=== PATIENT | male | born 1970 | race Caucasian/White ===

== ENCOUNTER → 2018-12-30 08:45 | Outpatient (CLI) | payer OTHER, SELFPAY ==
--- NOTE | 2018-12-30 08:47 | MR_ITS ---
PROCEDURE: MR ANKLE RT WO/W CON CLINICAL INDICATION: right ankle pain Pain and swelling, recent injury with pain, limited range of motion Sprain of the ATF L Sprain of the deltoid ligament Peroni ule tendonitis the COMPARISON: XR ANKLE RT MIN 3V from 12/04/2018 TECHNIQUE: Routine multiplanar multi echo sequences are performed without and with gadolinium enhancement. FINDINGS: Tibial fibular ligaments appear intact. There is some thinning of the ATFL with some slight increased T2 signal on the STIR images . The PT FL has an unremarkable appearance. There is some increased edema involving the inferior fibers of the deltoid ligament. There is slight edema involving the distal aspect of the fibula. The Achilles tendon and flexor tendons appear intact there is slight increased T2 signal involving the peroneal brevis tendon inferior to the tip of the fibula. There is an accessory center of ossification versus an old fracture at the tip of the fibula. The flexor hallucis longus, flexor digitorum longus, and posterior tibialis tendons appear intact. There is a small ankle joint effusion. No acute fractures. IMPRESSION: 1. Sprain versus partial tear of the ATFL 2. Sprain versus partial tear of the caudal fibers of the deltoid ligament 3. Slight increased signal involves the peroneal brevis tendon just distal to the lateral malleolar region and may represent a small intrasubstance tear versus an area of tendinosis. 4. Mild edema of the lateral malleolar region which could represent a bone bruise Dictated by: Isael Quiroga MD 12/31/2018 09:29 Electronically signed by Isael Quiroga MD in [place] 01/03/2019 05:05
== END ==
PROVIDERS: Visit Provider Podiatrist
DX: M25.471 Effusion, right ankle (principal); M25.571 Pain in right ankle and joints of right foot; S82.891A Other fracture of right lower leg, initial encounter for closed fracture; S93.401A Sprain of unspecified ligament of right ankle, initial encounter; S93.421A Sprain of deltoid ligament of right ankle, initial encounter
CPT/HCPCS: 73723; A9576

== ENCOUNTER → 2019-01-31 11:14 | Outpatient (CLI) | payer OTHER, SELFPAY ==
--- NOTE | 2019-01-31 | ECG_ITS ---
APPROVED REPORT Exam: Resting ECG HR:78 bpm ECG Measurements Heart Rate 78 AXES WY 164 P 63 QRSd 90 QRS 74 QT 362 T 14 QTc 412 <Conclusion> Normal sinus rhythm Normal ECG Electronically signed by : Moisés Ji, 02/03/2019 16:58:35
--- NOTE | 2019-01-31 11:35 | XR_ITS ---
PROCEDURE: XR CHEST 2V CLINICAL HISTORY: EXTREMITY SWELLING, ?CHF Hypertension, swelling COMPARISON: No exams were available for comparison FINDINGS: The cardiomediastinal silhouette and pulmonary vascularity are within normal limits. Linear density is present in the left lung base and in the anterior clear space consistent areas of atelectasis or fibrosis. No lobar consolidation or collapse. There is a small area of increased density overlying the T5 vertebral body superiorly and may be due to an area of sclerosis in the vertebral body. Summation artifact is also considered. Small osteophyte is considered as well. IMPRESSION: Atelectatic or fibrotic changes in the left lung base and anterior clear space Small area of increased density overlying the T5 vertebral body nonspecific. Stability may be confirmed with follow-up Dictated by: Isael Quiroga MD 01/31/2019 12:07 Electronically signed by Isael Quiroga MD in [place] 01/31/2019 12:08
[2019-01-31 11:55] LABS: Basophils % 0.5 % (0.1-2.0); Eosinophils # 0.1 K/mm3 (0.0-0.4); Eosinophils % 1.4 % (0.1-12.0); Hematocrit 48.9 % (42.0-52.0); Lymphocytes % 40.5 % (10-50); Mean Corpuscular HGB Conc 32.7 g/dL (31.8-35.4); Mean Corpuscular Hemoglobin 29.5 pg (27.0-31.2); Mean Corpuscular Volume 90.2 fl (80-94); Mean Platelet Volume 7.7 fl (7.4-10.4); Monocytes # 0.3 K/mm3 (0.1-1.0); Monocytes % 6.6 % (1.7-9.3); Neutrophils # 2.5 K/mm3 (1.8-7.8); Platelet Count 228 K/mm3 (142-424); Red Blood Count 5.42 M/mm3 (4.60-6.20); Red Cell Distribution Width 13.7 % (11.5-17.5); White Blood Count 4.9 K/mm3 (4.8-10.8)
[2019-01-31 12:58] LABS: Alanine Aminotransferase 75 U/L (12-78); Albumin Level 3.7 gm/dL (3.4-5.0); Albumin/Globulin Ratio 1.1 (1.1-1.8); Alkaline Phosphatase 71 U/L (46-116); Anion Gap 11.7 mEq/L (5-15); Aspartate Amino Transferase 37 U/L (15-37); Bilirubin,Total 0.6 mg/dL (0.2-1.0); Blood Urea Nitrogen 10 mg/dL (7-18); Calcium 8.8 mg/dL (8.5-10.1); Carbon Dioxide 28 mmol/L (21.0-32.0); Chloride 102 mmol/L (98-107); Creatinine,Serum 0.77 mg/dL (0.70-1.30); Estimated Glomerular Filt Rate 108 ml/min (>60); GFR (African American) 130 ML/MIN (>60); Globulin 3.3 gm/dl (1.3-3.2); Glucose 238 mg/dL (74-106); Potassium 4.7 mmoL/L (3.5-5.1); Sodium 137 mmol/L (136-145)
[2019-02-03 06:37] LABS: Vitamin D 25 Hydroxy 19.2 ng/mL (30.0-100.0)
== END ==
PROVIDERS: Visit Provider Podiatrist
DX: Z01.818 Encounter for other preprocedural examination (principal); S86.311A Strain of muscle(s) and tendon(s) of peroneal muscle group at lower leg level, right leg, initial encounter; S93.421A Sprain of deltoid ligament of right ankle, initial encounter; S93.491A Sprain of other ligament of right ankle, initial encounter; M25.471 Effusion, right ankle; M76.71 Peroneal tendinitis, right leg; M67.88 Other specified disorders of synovium and tendon, other site
CPT/HCPCS: 36415; 71046; 80053; 82652; 85025; 93005

== ENCOUNTER → 2019-03-17 09:53 | Outpatient (CLI) | payer OTHER, SELFPAY ==
--- NOTE | 2019-03-17 10:00 | XR_ITS ---
PROCEDURE: XR FOOT WT BEARING RT 3V CLINICAL INDICATION: postop surgery COMPARISON: No exams were available for comparison FINDINGS: No fracture or dislocation. No lytic or blastic change. There is normal mineralization. The joint spaces are well-preserved. No significant degenerative/arthritic changes. No erosive changes evident. Other findings:None. IMPRESSION: No acute findings. Dictated by: Isael Quiroga MD 03/17/2019 10:48 Electronically signed by Isael Quiroga MD in [place] 03/17/2019 10:48
--- NOTE | 2019-03-17 10:00 | XR_ITS ---
PROCEDURE: XR ANKLE WT BEARING RT MIN 3V CLINICAL INDICATION: postop surgery Follow-up surgery COMPARISON: XR ANKLE RT MIN 3V from 12/04/2018 XR ANKLE RT 2V from 02/12/2019 XR ANKLE RT MIN 3V from 02/12/2019 XR FOOT WT BEARING RT 3V from 03/17/2019 FINDINGS: Status post syndesmosis repair with a lateral bone plate at distal shaft of the fibula and 2 transparent fixators with buttons along the medial aspect of the distal tibia. There is an anchor screw at the distal fibula and 1 at the medial malleolar region. The posterior splint has been removed. There is some cortical irregularity at the medial malleolar region. There is good alignment. The talar dome has an unremarkable appearance. There are mild osteoarthritic changes of the 1st metatarsophalangeal joint.. There is mild osteopenia. IMPRESSION: Postsurgical changes with good alignment as described above. Dictated by: Isael Quiroga MD 03/17/2019 10:53 Electronically signed by Isael Quiroga MD in [place] 03/17/2019 10:53
== END ==
PROVIDERS: PCP Family Medicine; Visit Provider Podiatrist
DX: Z98.890 Other specified postprocedural states (principal); S86.311D Strain of muscle(s) and tendon(s) of peroneal muscle group at lower leg level, right leg, subsequent encounter; S93.421D Sprain of deltoid ligament of right ankle, subsequent encounter; M25.471 Effusion, right ankle; M76.71 Peroneal tendinitis, right leg; S93.491D Sprain of other ligament of right ankle, subsequent encounter; M67.88 Other specified disorders of synovium and tendon, other site
CPT/HCPCS: 73610; 73630

== ENCOUNTER → 2019-03-31 17:21 | Outpatient (CLI) | payer OTHER, SELFPAY | PROVIDERS: Visit Provider Podiatrist | DX: T81.31XA Disruption of external operation (surgical) wound, not elsewhere classified, initial encounter (principal); M25.571 Pain in right ankle and joints of right foot | CPT/HCPCS: 87070; 87077; 87186; 87205 ==

== ENCOUNTER → 2019-07-07 09:31 | Outpatient (CLI) | payer OTHER, SELFPAY ==
--- NOTE | 2019-07-07 09:38 | XR_ITS ---
PROCEDURE: XR FOOT WT BEARING RT 3V CLINICAL INDICATION: post-op COMPARISON: XR ANKLE RT 2V from 02/12/2019 XR ANKLE RT MIN 3V from 02/12/2019 XR FOOT WT BEARING RT 3V from 03/17/2019 XR ANKLE WT BEARING RT MIN 3V from 07/07/2019 FINDINGS: There is diffuse osteopenia. Mild osteoarthritic changes are present at the 1st MTP joint. There is a small calcaneal spur. There remains a small metallic anchor at the distal aspect of both the medial and lateral malleolar regions. There does appear to be a small avulsion fracture at the tip of the medial malleolus nondisplaced. Prior syndesmotic repair with bone plate at the distal fibula with translucent fixators in 2 metallic tabs along the medial aspect of the distal tibia. Overall not significantly changed. IMPRESSION: Overall no change status post prior distal tib fib surgery as described above. Dictated by: Isael Quiroga MD 07/07/2019 11:58 Electronically signed by Isael Quiroga MD in [place] 07/07/2019 11:58
== END ==
PROVIDERS: PCP Family Medicine; Visit Provider Podiatrist
DX: G89.18 Other acute postprocedural pain (principal); Z98.890 Other specified postprocedural states; M79.671 Pain in right foot
CPT/HCPCS: 73610; 73630

== ENCOUNTER 2019-07-30 08:00 | Outpatient (RCR) | payer OTHER, SELFPAY ==
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
--- NOTE | 2019-05-27 09:53 | HMH.RHREAS ---
Rehab Reassessment Rehab OP Re-assessment Start: 05/27/19 09:02 Freq: Status: Active Protocol: Document 05/27/19 09:02 BROWN (Rec: 05/27/19 09:52 BROWN [id number]) Electronically Signed By Nirmal Martinez, PT 05/27/19 09:02 Rehab Re-assessment Subjective Subjective Pt reports 4/10 R ankle pain at rest, and 6/10 w/activity on VAS, and feels 65% better overall since I eval Objective Objective Notes AROM: R ANKLE DF 0-10, PF 0-30 , INV 0-25, EVR 0-18 MMT: R ANKLE DF 4+/5, PF 4/5, INV 4/5, EVR 4-4-/5 TTP: R ANKLE LATERAL SX. INCISION 0-14 FIG 8: 64.5CM R Assessment Progress Assessment Progressing as Expected Assessment Notes PT W/IMPROVED AROM, STRENGTH, AND TTP, ADN EDEMA-FIG 8 Patient goals met STG'S 08/17 LTG'S 03/27 Goals Not Met STG'S 04/19, LTG'S Plan Plan Pt to continue w/skilled P.T. to make further improvements in AROM, strength, swelling, and TTP to allow for optimal function and return to work full-duty Frequency of Therapy 2-3x/wk Duration of therapy 6-10 wks Time and Billing Re-Eval Time 15 Re-Eval Billing Units 1 PHYSICIAN CERTIFICATION: I certify the specified therapy services for Dipak Renner are required, authorized, and reviewed every 30 days.
--- NOTE | 2019-06-30 14:45 | HMH.RHREAS ---
Rehab Reassessment Rehab OP Re-assessment Start: 05/27/19 09:02 Freq: Status: Active Protocol: Document 06/30/19 13:50 BROWN (Rec: 06/30/19 14:45 BROWN [id number]) Electronically Signed By Nirmal Martinez, PT 06/30/19 13:50 Rehab Re-assessment Subjective Subjective PT TEMP @ ARRIVAL 97.5F- FEELING WELL PT REPORTS ON AVERAGE 4/10 R FOOT/ANKLE PAIN ON VAS, HOWEVER, 'THERE'S TIMES WHERE IT DOESN'T HURT AT ALL, AND TIMES WHERE IT'S REALLY BAD SHARP PAIN, AND I'VE EXPERIENCED EPISODES OF IT GIVING OUT'. 'IT CERTAINLY IS EASIER TO GET THROUGH THESE EXERCISES.' Objective Objective Notes AROM: R ANKLE DF 0-10, PF 0-40 , INV 0-30, EVR 0-18 MMT: R ANKLE DF 4+/5, PF 4+/5, INV 4+/5, EVR 4-4+/5 TTP: R 3RD 4TH METATARSAL DORSAL SURFACE 2-3/4- NEUROLOGICAL PAIN-LATERAL PERONEAL NN DISTR PATTERN FIG 8: 65.5CM R Assessment Progress Assessment Progressing as Expected Assessment Notes PT W/IMPROVED AROM, AND STRENGTH, AND STILL POSSESSES LIMITATIONS IN PAIN/TTP Patient goals met STG'S 09/16 LTG'S 08/25 Goals Not Met STG'S 03/19, LTG'S 12/25 Plan Plan Pt to continue w/skilled P.T. to make further improvements in AROM, strength, swelling, and TTP to allow for optimal function and return to work full-duty Frequency of Therapy 2-3X/WK Duration of therapy 4-6WKS Time and Billing Re-Eval Time 15 Re-Eval Billing Units 1 PHYSICIAN CERTIFICATION: I certify the specified therapy services for Dipak Renner are required, authorized, and reviewed every 30 days.
--- NOTE | 2019-07-30 09:19 | HMH.RHREAS ---
Rehab Reassessment Rehab OP Re-assessment Start: 05/27/19 09:02 Freq: Status: Active Protocol: Document 07/30/19 08:00 BROWN (Rec: 07/30/19 09:19 BROWN [id number]) Electronically Signed By Nirmal Martinez, PT 07/30/19 08:00 Rehab Re-assessment Subjective Subjective Pt reports improved overall total body strength/fitness since last reassess, however, doesn't feel 'like my right ankle has gotten a whole better in the last month.' Pt reports desire to attempt to return to work, but is concerned about his ability to perform at a level high enough functionally to execute his previous job safely without the risk of re-injury. Pt reports he feels 'at a maximum 0f 65-70% better overall' related to R ankle/LE function since I eval, which 'is so much better than I was, but still not great for what I have to do for work'. Objective Objective Notes AROM: R ANKLE DF 0-10, PF 0-33 , INV 0-28, EVR 0-18 MMT: R ANKLE DF 5/5, PF 4--4/5 (pt unable to execute SL R LE calf raise, or maintain PF on RLE during toe walking), INV 4-/5, EVR 4-/5 TTP: R ankle/talocrural jt globally 0-1/4 FIG 8: 64.5CM R Assessment Progress Assessment Slower Than Expected Assessment Notes Despite progressing therapeutic exercise and neuro -mm alayna exercises consistently over the last 30 days, pt still possesses signficantly limitations in R ankle/LE strength and stability, aleyda. with higher level activities that simulate work-related activities. Pt has exhibited improved total body endurance/strength/ fitness, however, those gains have not translated to signif
== END 2019-07-30 08:05 | disposition home or self-care (01) ==
LOC: PT 08:00
PROVIDERS: Visit Provider Podiatrist
DX: S93.421D Sprain of deltoid ligament of right ankle, subsequent encounter (principal); S93.491D Sprain of other ligament of right ankle, subsequent encounter; S86.311D Strain of muscle(s) and tendon(s) of peroneal muscle group at lower leg level, right leg, subsequent encounter; Z98.890 Other specified postprocedural states
CPT/HCPCS: 97010; 97014; 97110; 97112; 97140; 97163; 97164; G0283

== ENCOUNTER 2021-04-25 09:52 | Emergency (ER) | payer SELFPAY ==
[2021-04-25 10:05] VITALS: BP 156/105; PULSE 101; RESP 18; TEMP 36.8; O2SAT 95; BMI 35.2
--- NOTE | 2021-04-25 11:02 | HMH.EDUTC ---
[facility] [place] Disposition Clinical Impression: Preston's palsy Disposition: Home, Self-Care Condition on Discharge: Good Instructions: DI for [place] Palsy, Acyclovir Additional Instructions: Your Predisone and acyclovir was called into the Clinic pharmacy make sure to go pick that up Artificial tears in affected eye will help to keep it moist and you may have to tape eyelid shut at night if you have issues closing it Follow up with your Family Doctor if no improvement Straight to ER as discussed if any changes in symptoms or weakness Take your medication as prescribed and take all medication to help Prescriptions: Amoxicillin/Potassium Clav [Augmentin 875-125 Tablet] 1 tab PO Q12H 7 Days #14 tab Referrals: Mike Garce MD [Primary Care Provider] - As needed Forms: Work/School Release Time of Disposition: 11:37 Medical Decision Making - Stevie Inquiry Pt receiving controlled substance: No Stevie was queried for this patient: No Vital Signs: 04/25/21 10:05 04/25/21 11:39 Temperature 98.2 F 98.2 F Temperature Source Temporal Artery Scan Pulse Rate 101 H Pulse Rate [Right Brachial] 101 H Respiratory Rate 18 18 Blood Pressure 128/93 H Blood Pressure [Right Arm] 156/105 H Blood Pressure Mean [Right Arm] 122 Blood Pressure Source [Right Arm] Automatic Cuff Blood Pressure Position [Right Arm] Sitting 02 Sat by Pulse Oximetry 95 Oxygen Delivery Method Room Air Medical Decision Narrative: Discussed with patient about transfer to the ED due to symptoms on left side of face and patient declined states that it is just like symptoms he had a few weeks ago on the right side of his face and he has been under alot of stress and thinks that may have been brought it on Denies weakness in his left side Denies weakness in arms or legs, denies confusion and denies lack of coordination [facility] [place] HPI - General Stated complaint: bells palsey Time Seen by Provider: 04/25/21 11:02 Mode of Arrival: Ambulatory Source of Information: Patient Limitations: No Limitations Description of Symptoms (Recalled from Triage Doc. by RN): PATIENT C/O FACIAL DROOPING TO LEFT SIDE OF FACE SINCE SUNDAY. HE REPORTS A RECENT HISTORY OF BELLS PALSY TO RIGHT SIDE OF FACE THAT STARTED A COUPLE OF WEEKS AGO AND RECENTLY RESOLVED. HEENT Symptoms (Recalled from RN notes): No Resp Symptoms (Recalled from RN notes): No Skin Symptoms (Recalled from RN notes): No MS Symptoms (Recalled from RN notes): No Functional Status (Recalled from RN notes): WNL - History of Present Illness Provider Complaint: Patient states that he initially had belsy palsy on the right side of his face States that he was on medication and it got better but today he woke up with same symptoms on the left side of his face States that he has been under alot of stress States that he is not having any weakness in his extremities or in his hands, legs or feet States that he is just unable to raise the eyebrow on his left side of face and when he smiles states that he is still able to blink his eye at this time - Related Data Home Medications Medication Instructions Recorded Confirmed Acyclovir [Zovirax 400mg tablet] 400 mg PO BID 04/25/21 04/25/21 Metformin HCl [Glucophage] 500 mg PO BID 04/25/21 04/25/21 cephALEXin [cephALEXin 500mg 500 mg PO TID 04/25/21 04/25/21 capsule*] predniSONE [Deltasone 10mg 10 mg PO BID 04/25/21 04/25/21 tablet] Previous Rx's Medication Instructions Recorded Amoxicillin/Potassium Clav 1 tab PO Q12H 7 Days #14 tab 04/25/21 [Augmentin 875-125 Tablet] Allergies Allergy/AdvReac Type Severity Reaction Status Date / Time No Known Allergies Allergy Verified 04/06/21 08:51 - Worker's Comp Is this a Worker's Comp case?: No [facility] History - Hepatitis A Screen Drug use history?: No High risk sexual behaviors?: No History of sexually transmitted infection?: No Currently employed?: No Childcare worker?: No Do you have indoor pl
[2021-04-25 11:39] VITALS: BP 128/93; PULSE 101; RESP 18; TEMP 36.8; O2SAT 95
== END 2021-04-25 11:43 | disposition home or self-care (01) ==
PROVIDERS: Emergency Provider Nurse Practitioner; PCP Emergency Medicine
DX: G51.0 Bell's palsy; I10 Essential (primary) hypertension; E11.9 Type 2 diabetes mellitus without complications
CPT/HCPCS: 99202; G0463

== ENCOUNTER → 2021-06-11 15:30 | Outpatient (CLI) | payer SELFPAY | PROVIDERS: PCP Emergency Medicine; Visit Provider Nurse Practitioner Family | DX: Z11.52 Encounter for screening for COVID-19 (principal) | CPT/HCPCS: C9803; U0003; U0005 ==